=== PATIENT | female | born 1980 | race Caucasian/White ===

== ENCOUNTER 2017-05-17 10:47 | Observation (INO) | payer MEDICAID, OTHER ==
[~2017-05-17] VITALS: Ht 165.1 cm; Wt 72.7 kg
[~2017-05-17 10:47] MED LIST: NONE PER PT
[2017-05-17] MEDS ORDERED: LIDOCAINE 1%, 20ML ONE ×2 (10:50→11:05)
[2017-05-17] MEDS ORDERED: MISOPROSTOL 200 MCG TABLET ONE (10:51)
[2017-05-17 11:14] VITALS: BP 120/80
== END 2017-05-17 12:10 | disposition home or self-care (01) ==
LOC: LDIP 10:47
PROVIDERS: ADMIT Obstetrics & Gynecology; ATTEND Obstetrics & Gynecology
DX: O70.1 Second degree perineal laceration during delivery (principal); Z37.0 Single live birth
CPT/HCPCS: 59430; G0378